=== PATIENT | male | born 1985 | race Caucasian/White ===

== ENCOUNTER 2016-08-28 13:17 | Emergency (ER) | payer BC ==
[2016-08-28] MEDS ORDERED: Ketorolac 30 MG/ML SDV IVPUSH ONE (13:40)
[2016-08-28] MEDS ORDERED: Ondansetron 4 MG/2 ML SDV IVPUSH ONE (13:40)
[2016-08-28] MEDS ORDERED: Sodium Chloride 0.9% 1,000 ML IV ONE (13:40)
[2016-08-28] MEDS ORDERED: Sodium Chloride 0.9% 2.5 ML Syringe FLUSH PRN (13:40)
[2016-08-28] MEDS ORDERED: Sodium Chloride 0.9% 10 ML Syringe FLUSH PRN (13:40)
--- NOTE | 2016-08-28 13:45 | EDM.PDOC ---
ED HPI GENERAL MEDICAL PROBLEM - General Chief Complaint: Abdominal Pain Stated Complaint: SIDE PAIN Time Seen by Provider: 08/28/16 13:28 - History of Present Illness INITIAL COMMENTS - FREE TEXT/NARRATIVE: HISTORY AND PHYSICAL: History of present illness: The patient is a healthy 30-year-old male with no stated medical problems who presents with a one-week history of left upper abdominal pain that started gradually and has been waxing and waning in intensity. The patient states he is normally just dull but then it will intensified to a stabbing-like sensation and when it occurs it radiates to his flank. The patient denies any vomiting but has had nausea intermittently and has had no diarrhea. He denies black or bloody stools he has not had hematuria frequency or urgency he states he has had intermittent dysuria. Patient states he has had his normal bowel movements. Patient denies STD risks and has no testicular pain or swelling. He's had no fever chills cough chest pain or shortness of breath. Patient denies any trauma to this area. Patient states he's been eating and drinking normally and he admits he does not eat a very healthy diet and eats more fast foods and on the go foods as well as caffeinated products. Patient's never had endoscopy or colonoscopy and he states he drinks a couple of beers every few months and has not had alcohol in the last 2 weeks. Review of systems: As per history of present illness and below otherwise all systems reviewed and negative. Past medical history: As per history of present illness and as reviewed below otherwise noncontributory. Surgical history: As per history of present illness and as reviewed below otherwise noncontributory. Social history: No reported history of drug or alcohol abuse. Family history: As per history of present illness and as reviewed below otherwise noncontributory. Physical exam: General: Well-developed thin male who is nontoxic and moves easily in the ED. Vital signs are noted by me. HEENT: Atraumatic, normocephalic, pupils reactive, negative for conjunctival pallor or scleral icterus, mucous membranes moist, throat clear, neck supple, nontender, trachea midline. Lungs: Clear to auscultation, breath sounds equal bilaterally, chest nontender. No work or breathing or sensory muscle use Heart: S1S2, regular, negative for clicks, rubs, or JVD. Abdomen: Soft, nondistended, L. sounds are hypoactive and there is mild tenderness on deep palpation of the left upper quadrant without rebound or guarding. The remainder of the abdomen is nontender Negative for masses or hepatosplenomegaly. Negative for costovertebral tenderness. Pelvis: Stable nontender. Genitourinary: Deferred. Rectal: Deferred. Extremities: Atraumatic, negative for cords or calf pain. Neurovascular unremarkable. Neuro: Awake, alert, oriented. Cranial nerves II through XII unremarkable. Cerebellum unremarkable. Motor and sensory unremarkable throughout. Exam nonfocal. Diagnostics: CBC CMP amylase lipase UA CT scan of the abdomen and pelvis Therapeutics: IV fluids Zofran Toradol All testing results have been discussed with the patient and advise followup in our clinic and reevaluating dietary choices and increasing water and fiber in his diet. I will give him Bentyl for home Impression: Left sided abdominal pain etiology unclear stable Definitive disposition and diagnosis as appropriate pending reevaluation and review of above. Left Upper Abdominal Pain Score (Numeric/FACES): 3 - Related Data Allergies Allergy/AdvReac Type Severity Reaction Status Date / Time No Known Allergies Allergy Verified 08/28/16 13:30 Home Meds: Home Meds . [No Known Home Meds] 08/28/16 [History] Past Medical History - Past Health History Medical/Surgical History: Denies Medical/Surgical History Cardiovascular History: Reports: Other (see below) Other Cardiovascular History: bicuspid aortic stenosis - Infectious Disease History Infectious Disease History: Reports: Chicken pox Social & Family History - Family History Family Medical History: Noncontributory - Tobacco Use Smoking Status *Q: Never Smoker - Recreational Drug Use Recreational Drug Use: No ED ROS GENERAL - Review of Systems Review Of Systems: ROS reveals no pertinent complaints other than HPI. ED EXAM, GENERAL - Physical Exam Exam: See Below (See dictation) Course - Vital Signs Last Recorded V/S: Last Vital Signs Temp 36.9 C 08/28/16 13:27 Pulse 89 08/28/16 13:27 Resp 16 08/28/16 13:27 BP 126/78 08/28/16 13:27 Pulse Ox 98 08/28/16 13:27 - Orders/Labs/Meds Orders: Active Orders 24 hr Category Date Time Status UA W/MICROSCOPIC [URIN] Stat Lab 08/28/16 14:01 Ordered Sodium Chloride 0.9% [Saline Flush] Med 08/28/16 13:40 Active 10 ml FLUSH ASDIRECTED PRN Sodium Chloride 0.9% [Saline Flush] Med 08/28/16 13:40 Active 2.5 ml FLUSH ASDIRECTED PRN Saline Lock Insert [OM.PC] Stat Oth 08/28/16 13:40 Ordered Medication Orders Sodium Chloride (Saline Flush) 10 ml FLUSH ASDIRECTED PRN PRN Reason: Keep Vein Open Sodium Chloride (Saline Flush) 2.5 ml FLUSH ASDIRECTED PRN PRN Reason: Keep Vein Open Labs: Laboratory Tests 08/28/16 08/28/16 Range/Units 13:50 13:50 WBC 4.17 (4.0-11.0) K/uL RBC 5.23 (4.50-5.90) M/uL Hgb 15.2 (13.0-17.0) g/dL Hct 44.5 (38.0-50.0) % MCV 85.1 (80.0-98.0) fL MCH 29.1 (27.0-32.0) pg MCHC 34.2 (31.0-37.0) g/dL RDW Std Deviation 39.7 (28.0-62.0) fl RDW Coeff of Carmelina 13 (11.0-15.0) % Plt Count 157 (150-400) K/uL MPV 11.10 (7.40-12.00) fL Neut % (Auto) 46.7 L (48.0-80.0) % Lymph % (Auto) 35.5 (16.0-40.0) % [place] % (Auto) 13.2 (0.0-15.0) % Eos % (Auto) 3.4 (0.0-7.0) % Baso % (Auto) 1.2 (0.0-1.5) % Neut # 2.0 (1.4-5.7) K/uL Lymph # 1.5 (0.6-2.4) K/uL [place] # 0.6 (0.0-0.8) K/uL Eos # 0.1 (0.0-0.7) K/uL Baso # 0.1 (0.0-0.1) K/uL Nucleated RBC % 0.0 /100WBC Nucleated RBCs # 0 K/uL Sodium 142 (136-146) mmol/L Potassium 3.9 (3.5-5.1) mmol/L Chloride 106 (98-110) mmol/L Carbon Dioxide 27 (21-31) mmol/L BUN 16 (6.0-23.0) mg/dL Creatinine 1.1 (0.6-1.5) mg/dL Est Cr Clr Drug Dosing 102.38 mL/min Estimated GFR (MDRD) > 60.0 ml/min Glucose 91 (60-110) mg/dL Calcium 9.0 (8.8-10.8) mg/dL Total Bilirubin 1.9 H (0.1-1.5) mg/dL AST 17 (5-40) IU/L ALT 13 (8-54) IU/L Alkaline Phosphatase 57 (40-150) Total Protein 6.9 (6.0-8.0) g/dL Albumin 4.3 (3.5-5.0) g/dL Globulin 2.6 (2.0-3.5) g/dL Albumin/Globulin Ratio 1.7 (1.3-2.8) Amylase 52 (10-90) U/L Lipase 42 (7-80) U/L Meds: Medications Generic Name Dose Route Start Last Admin Trade Name Luis PRN Reason Stop Dose Admin Sodium Chloride 10 ml 08/28/16 13:40 Saline Flush FLUSH ASDIRECTED PRN Keep Vein Open Sodium Chloride 2.5 ml 08/28/16 13:40 Saline Flush FLUSH ASDIRECTED PRN Keep Vein Open Discontinued Medications Generic Name Dose Route Start Last Admin Trade Name Luis PRN Reason Stop Dose Admin Sodium Chloride 1,000 mls @ 999 mls/hr 08/28/16 13:40 08/28/16 13:58 Normal Saline IV 08/28/16 14:40 999 mls/hr STAT ONE Administration Iopamidol 88 ml 08/28/16 15:03 08/28/16 15:04 Isovue-370 (76%) IV 08/28/16 15:04 88 ml ONETIME ONE Administration Ketorolac Tromethamine 30 mg 08/28/16 13:40 08/28/16 13:59 Toradol IVPUSH 08/28/16 13:41 30 mg ONETIME ONE Administration Ondansetron HCl 4 mg 08/28/16 13:40 08/28/16 13:56 Zofran IVPUSH 08/28/16 13:41 4 mg ONETIME ONE Administration Departure - Departure Time of Disposition: 15:47 Disposition: Home, Self-Care 01 Condition: good Clinical Impression: Abdominal pain Qualifiers: Abdominal location: left upper quadrant Qualified Code(s): R10.12 - Left upper quadrant pain Forms: ED Department Discharge Additional Instructions: The following information is given to patients seen in the emergency department who are being discharged to home. This information is to outline your options for follow-up care. We provide all patients seen in our emergency department with a follow-up referral. The need for follow-up, as well as the timing and circumstances, are variable depending upon the specifics of your emergency department visit. If you don't have a primary care physician on staff, we will provide you with a referral. We always advise you to contact your personal physician following an emergency department visit to inform them of the circumstance of the visit and for follow-up with them and/or the need for any referrals to a consulting specialist. The emergency department will also refer you to a specialist when appropriate. This referral assures that you have the opportunity for followup care with a specialist. All of these measure are taken in an effort to provide you with optimal care, which includes your followup. Under all circumstances we always encourage you to contact your private physician who remains a resource for coordinating your care. When calling for followup care, please make the office aware that this follow-up is from your recent emergency room visit. If for any reason you are refused follow-up, please contact the [facility] emergency department at and ask to speak to the emergency department charge nurse. [facility] Primary care- [place] [address] Please try to increase fiber in diet and drink more water, less caffeine. Please use Bentyl as needed and prescribed. Please call and followup in our clinic as we discussed for further care and evaluation and return here as needed and as discussed - My Orders Last 24 Hours: My Active Orders 08/28/16 13:40 Sodium Chloride 0.9% [Saline Flush] 10 ml FLUSH ASDIRECTED PRN Sodium Chloride 0.9% [Saline Flush] 2.5 ml FLUSH ASDIRECTED PRN Saline Lock Insert [OM.PC] Stat 08/28/16 14:01 UA W/MICROSCOPIC [URIN] Stat - Assessment/Plan Last 24 Hours: My Active Orders 08/28/16 13:40 Sodium Chloride 0.9% [Saline Flush] 10 ml FLUSH ASDIRECTED PRN Sodium Chloride 0.9% [Saline Flush] 2.5 ml FLUSH ASDIRECTED PRN Saline Lock Insert [OM.PC] Stat 08/28/16 14:01 UA W/MICROSCOPIC [URIN] Stat
[2016-08-28 14:33] LABS: CHLORIDE,CL 106 mmol/L (98-110); SODIUM,NA 142 mmol/L (136-146)
[2016-08-28] MEDS ORDERED: Iopamidol 755 MG/ML 50 ML Bottle IV ONE (15:03)
--- NOTE | 2016-08-28 15:36 | CT ---
CT of the abdomen and pelvis with and without contrast. HISTORY: Left upper quadrant pain TECHNIQUE: Axial CT images were obtained of the abdomen and pelvis before and following administrati on of 88 mL of Isovue-370 in the right forearm without complication. Coronal and sagittal reconstruc tions obtained. FINDINGS: The lung bases are clear, no pleural effusion. The liver, spleen, adrenal glands, and pancreas appear normal. The gallbladder is mostly decompresse d. No bulky retroperitoneal lymphadenopathy or, ascites. The kidneys enhance and function symmetrically without evidence of obstructive uropathy. The large and small bowel are normal in caliber without evidence of obstruction. No pericolonic infl ammation or stranding. There is appendicolith within an otherwise normal appendix. The urinary bladd er appears normal. No suspicious osseous abnormalities identified. IMPRESSION: No acute findings demonstrated within the abdomen or pelvis.
[2016-08-28 16:10] VITALS: BP 108/62
== END 2016-08-28 16:06 | disposition home or self-care (01) ==
LOC: MW.ED 13:17
DX: R10.12 Left upper quadrant pain (principal)
CPT/HCPCS: 36415; 74178; 80053; 82150; 83690; 85025; 96361; 96374; 96375; 99284; J1885; J2405; J7040; Q9967